=== PATIENT | male | born 1980 | race Caucasian/White ===

== ENCOUNTER 2020-08-05 12:00 | Outpatient (REF) | payer MEDICAID, SELFPAY | END 2020-08-05 12:01 | disposition home or self-care (01) | LOC: NCHCN 12:00 | PROVIDERS: PCP General Practice; Visit Provider Physician Assistant | DX: L02.415 Cutaneous abscess of right lower limb (principal) | CPT/HCPCS: 87077; 87070; 87186; 87205 ==

== ENCOUNTER 2020-09-12 17:19 | Outpatient (REF) | payer MEDICAID, SELFPAY ==
[2020-09-12 15:53] LABS: ALT 28 U/L (16-63); AST 20 U/L (15-37); Albumin 3.9 g/dL (3.4-5.0); Alkaline Phosphatase 79 U/L (46-116); Anion Gap 9.4 mmol/L (3-11); BUN 21 mg/dL (7-18); Bilirubin, Total 0.4 mg/dL (0.2-1.0); CO2 28.6 mmol/L (21.0-32.0); CREATININE 1.1 mg/dL (0.70-1.30); Calcium 8.9 mg/dL (8.5-10.1); Calculated LDL 83 mg/dL (<100); Chloride 103 mmol/L (98-107); Cholesterol 140 mg/dL (<200); Glucose 101 mg/dL (74-106); HDL Cholesterol 29 mg/dL (40-60); Potassium 4.2 mmol/L (3.5-5.1); Sodium 141 mmol/L (136-145); TSH (W/Ref FT4) 2.93 uIU/mL (0.36-3.74); Total Protein 7.6 g/dL (6.4-8.2); Triglyceride 141 mg/dL (<150)
[2020-09-12 16:24] LABS: Hemoglobin A1C 5.2 % (<5.7)
== END 2020-09-12 17:20 | disposition home or self-care (01) ==
LOC: NCHCN 17:19
PROVIDERS: PCP General Practice; Visit Provider Physician Assistant
DX: I10 Essential (primary) hypertension (principal); E66.01 Morbid (severe) obesity due to excess calories; Z13.1 Encounter for screening for diabetes mellitus; Z13.220 Encounter for screening for lipoid disorders
CPT/HCPCS: 80053; 80061; 83036; 84443

== ENCOUNTER 2021-10-07 19:40 | Outpatient (REF) | payer MEDICAID, SELFPAY ==
[2021-10-07 21:10] LABS: Anion Gap 8.4 mmol/L (3-11); BUN 18 mg/dL (7-18); CO2 27.6 mmol/L (21.0-32.0); CREATININE 1.1 mg/dL (0.70-1.30); Chloride 105 mmol/L (98-107); Glucose 103 mg/dL (74-106); Sodium 141 mmol/L (136-145)
== END 2021-10-07 19:41 | disposition home or self-care (01) ==
LOC: NCHCN 19:40
PROVIDERS: PCP General Practice; Visit Provider Physician Assistant
DX: I10 Essential (primary) hypertension (principal)
CPT/HCPCS: 80048

== ENCOUNTER 2023-02-08 15:58 | Outpatient (REF) | payer MEDICAID, SELFPAY ==
[2023-02-08 20:00] LABS: Abs Immature Grans 0.02 10^3/uL (0.0-0.06); Absolute Basophil Count 0.06 10^3/uL (0.0-0.2); Absolute Eosinophil Count 0.53 10^3/uL (0.0-0.7); Absolute Lymphocyte Count 1.08 10^3/uL (1.2-3.4); Absolute Monocyte Count 0.84 10^3/uL (0.1-0.8); Absolute Neutrophil Count 5.68 10^3/uL (1.2-6.7); Basophils % 0.7; Eosinophils % 6.5; HCT 47.5 % (40.0-50.0); HGB 16.3 g/dL (13.5-17.5); Immature Grans % 0.2; Lymphocytes % 13.2; MCH 30.7 pg (27.0-33.0); MCHC 34.3 % (32.0-36.0); MCV 90 fL (80-95); MPV 12.2 fL (8.0-11.0); Monocytes % 10.2; Neutrophils % 69.2; Platelet Count 179 10^3/uL (130-400); RBC 5.31 10^6/uL (4.36-5.78); RDW 13.6 % (11.8-14.1); RDW-SD 44.3 fL; WBC 8.21 10^3/uL (4.4-10.8)
[2023-02-08 20:18] LABS: ALT 22 U/L (16-63); AST 27 U/L (15-37); Alkaline Phosphatase 92 U/L (46-116); Anion Gap 12.6 mmol/L (3-11); BUN 29 mg/dL (7-18); Bilirubin, Total 1.2 mg/dL (0.2-1.0); CO2 23.4 mmol/L (21.0-32.0); CREATININE 1.4 mg/dL (0.70-1.30); Calcium 9.6 mg/dL (8.5-10.1); Chloride 103 mmol/L (98-107); Estimated GFR 65.16 (mL/min/1.73m2); Glucose 91 mg/dL (74-106); Potassium 4.2 mmol/L (3.5-5.1); Sodium 139 mmol/L (136-145); Total Protein 8.2 g/dL (6.4-8.2)
== END 2023-02-08 15:59 | disposition home or self-care (01) ==
LOC: NCHCN 15:58
PROVIDERS: PCP General Practice; Visit Provider Physician Assistant
DX: I10 Essential (primary) hypertension (principal); E66.8 Other obesity
CPT/HCPCS: 80053; 84443; 85025

== ENCOUNTER 2023-08-09 17:30 | Outpatient (REF) | payer MEDICAID, SELFPAY ==
[2023-08-09 18:37] LABS: HCT 49.5 % (40.0-50.0); HGB 17.1 g/dL (13.5-17.5); MCH 31.7 pg (27.0-33.0); MCHC 34.5 % (32.0-36.0); MCV 92 fL (80-95); MPV 11.9 fL (8.0-11.0); Platelet Count 173 10^3/uL (130-400); RDW 12.5 % (11.8-14.1); RDW-SD 42.3 fL; WBC 8.87 10^3/uL (4.4-10.8)
[2023-08-09 18:46] LABS: Uric Acid 8.3 mg/dL (3.5-7.2)
== END 2023-08-09 17:31 | disposition home or self-care (01) ==
LOC: NCHCN 17:30
PROVIDERS: PCP General Practice; Visit Provider Nurse Practitioner Family
DX: R60.0 Localized edema (principal)
CPT/HCPCS: 85027; 84550

== ENCOUNTER 2024-08-22 15:10 | Outpatient (REF) | payer MEDICAID, SELFPAY ==
[2024-08-22 20:49] LABS: ALT 43 U/L (16-63); AST 41 U/L (15-37); Albumin 4.2 g/dL (3.4-5.0); Alkaline Phosphatase 86 U/L (46-116); BUN 27 mg/dL (7-18); Bilirubin, Total 0.8 mg/dL (0.2-1.0); CREATININE 1.1 mg/dL (0.70-1.30); Calcium 9.6 mg/dL (8.5-10.1); Chloride 106 mmol/L (98-107); Estimated GFR 85.95 (mL/min/1.73m2); Glucose 90 mg/dL (74-106); Sodium 142 mmol/L (136-145); Total Protein 8.1 g/dL (6.4-8.2)
[2024-08-24 10:17] LABS: HIV-1/2 Ag & Ab Screen Negative (Negative)
[2024-08-24 10:34] LABS: Hepatitis C Ab w Rflx HCV PCR Negative (Negative)
== END 2024-08-22 15:11 | disposition home or self-care (01) ==
LOC: NCHCN 15:10
PROVIDERS: PCP General Practice; Visit Provider Physician Assistant
DX: I10 Essential (primary) hypertension (principal); Z11.59 Encounter for screening for other viral diseases; Z11.4 Encounter for screening for human immunodeficiency virus [HIV]
CPT/HCPCS: 80053; 86803; 87389

== ENCOUNTER 2024-09-10 12:58 | Outpatient (REF) | payer MEDICAID, SELFPAY ==
[2024-09-10 19:32] LABS: Abs Immature Grans 0.01 10^3/uL (0.0-0.06); Absolute Basophil Count 0.04 10^3/uL (0.0-0.2); Absolute Eosinophil Count 0.21 10^3/uL (0.0-0.7); Absolute Lymphocyte Count 1.04 10^3/uL (1.2-3.4); Absolute Monocyte Count 0.47 10^3/uL (0.1-0.8); Absolute Neutrophil Count 4.69 10^3/uL (1.2-6.7); Basophils % 0.6 %; Eosinophils % 3.3 %; HCT 48.3 % (40.0-50.0); HGB 16.4 g/dL (13.5-17.5); Immature Grans % 0.2 %; Lymphocytes % 16.1 %; MCH 31.1 pg (27.0-33.0); MCV 92 fL (80-95); MPV 11.8 fL (8.0-11.0); Monocytes % 7.3 %; Neutrophils % 72.5 %; Platelet Count 173 10^3/uL (130-400); RBC 5.28 10^6/uL (4.36-5.78); RDW 12.9 % (11.8-14.1); RDW-SD 43.6 fL; WBC 6.46 10^3/uL (4.4-10.8)
[2024-09-10 19:47] LABS: Iron 88 ug/dL (65-175); Total Iron Binding Capacity 285 ug/dL (250-450); Transferrin Sat 31 % (20-55)
[2024-09-10 19:49] LABS: Calculated LDL 102 mg/dL (<100); Cholesterol 176 mg/dL (<200); HDL Cholesterol 49 mg/dL (>or=40); Triglyceride 128 mg/dL (<150)
[2024-09-11 05:01] LABS: Ferritin 279 ng/mL (26-388)
== END 2024-09-10 12:59 | disposition home or self-care (01) ==
LOC: NCHCN 12:58
PROVIDERS: PCP General Practice; Visit Provider Physician Assistant
DX: R79.89 Other specified abnormal findings of blood chemistry (principal); I10 Essential (primary) hypertension
CPT/HCPCS: 80061; 82728; 83540; 83550; 85025